=== PATIENT | female | born 1950 ===

== ENCOUNTER 2021-02-28 07:30 | Outpatient (CLI) | payer OTHER | END 2021-02-28 07:32 | disposition home or self-care (01) | LOC: NUCLEAR 07:30 | PROVIDERS: ATTEND Internal Medicine Cardiovascular Disease | DX: I20.8 Other forms of angina pectoris (principal); E78.89 Other lipoprotein metabolism disorders | CPT/HCPCS: 78452; 93017; A9500; J0153 ==